=== PATIENT | male | born 1995 | race Hispanic/Latino ===

== ENCOUNTER 2019-06-27 22:57 | Emergency (ER) | payer SELFPAY ==
[2019-06-27 23:38] LABS: Bacteria/HPF None Seen HPF (None Seen); Bilirubin Negative (Negative); Blood, Urine 3+ (Negative); Clarity Clear (Clear); Glucose, Urine (Dipstick) Normal (Negative); Leukocyte Negative Leu/uL (Negative); Mucous/LPF Rare LPF (<2+); Nitrite Negative (Negative); Protein, Urine (Dipstick) Negative (Neg-Trace); RBC/HPF Greater than 50 HPF (0-3); Squamous Epithelial None Seen HPF (0-3); Urobilinogen Normal mg/dL (Less than 2); WBC/HPF 21-50 HPF (0-3)
[2019-06-28] MEDS ORDERED: Azithromycin 500 MG VIAL ONE (02:27)
[2019-06-28] MEDS ORDERED: Lidocaine 1% PF 5 ML VIAL ONE (02:27)
[2019-06-28] MEDS ORDERED: cefTRIAXone\\ROCEPHIN 250 MG VIAL ONE (02:27)
[2019-06-28] MEDS ORDERED: Azithromycin 250 MG TAB ONE (02:29)
[2019-06-30 18:57] LABS: Chlam.trachomatis by PCR,Urine Not Detected (NotDetected)
== END 2019-06-28 03:09 | disposition home or self-care (01) ==
LOC: ERS 22:57
DX: R36.1 Hematospermia (principal)
CPT/HCPCS: 81003; 81015; 87491; 87591; 96372; 99283; J0456; J0696; J2001